=== PATIENT | male | born 1990 | race Caucasian/White ===

== ENCOUNTER 2016-10-11 12:26 | Inpatient (IN) | payer OTHER ==
[2016-10-11 13:03] VITALS: BMI 22.1
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
[2016-10-11] MEDS ORDERED: MAG HYDROX/AL HYDROX/SIMETH 30 ML UNIT-DOSE CUP PO PRN (15:13)
[2016-10-11] MEDS ORDERED: guaiFENesin/D-METHORPHAN HB 10 ML UNIT-DOSE CUPS PO PRN (15:13)
[2016-10-11] MEDS ORDERED: MENTHOL/PHENOL 1 EACH UD MM PRN (15:13)
[2016-10-11] MEDS ORDERED: P-EPHED 60MG/TRIPROLIDI 2.5MG TABLET PO PRN (15:13)
[2016-10-11] MEDS ORDERED: MAGNESIUM CITRATE 300 ML BOTTLE PO PRN (15:13)
[2016-10-11] MEDS ORDERED: chlordiazePOXIDE HCL 25 MG CAPSULE PO PRN (15:13)
[2016-10-11] MEDS ORDERED: ACETAMINOPHEN 325 MG TABLET (FP) PO PRN (15:13)
[2016-10-11] MEDS ORDERED: IBUPROFEN 400 MG TABLET (FP) PO PRN (15:13)
[2016-10-11] MEDS ORDERED: MAGNESIUM HYDROX 2400MG/30ML ORAL SUSPENSION 30 ML CUP PO PRN (15:13)
[2016-10-11] MEDS ORDERED: LOPERAMIDE HCL 2 MG CAPSULE PO PRN (15:13)
[2016-10-11] MEDS ORDERED: NICOTINE POLACRILEX 2 MG GUM BUC PRN (15:13)
[2016-10-11] MEDS ORDERED: chlordiazePOXIDE HCL 25 MG CAPSULE PO ONE (15:28)
[2016-10-11] MEDS: NICOTINE 14 MG/24 HOURS TOPICAL PATCH TD SCH (15:50)
[2016-10-11] MEDS: chlordiazePOXIDE HCL 25 MG CAPSULE PO SCH ×2 (17:06→22:31)
[2016-10-11] MEDS: THIAMINE HCL 100 MG TABLET (FP) PO SCH (22:31)
[2016-10-11] MEDS: diphenhydrAMINE HCL 50 MG CAPSULE PO PRN (22:31)
[2016-10-11 23:08] LABS: URINE APPEARANCE CLEAR; URINE BILIRUBIN NEGATIVE (NEGATIVE); URINE BLOOD NEGATIVE (NEGATIVE); URINE COLOR YELLOW; URINE GLUCOSE (UA) NEGATIVE (NEGATIVE); URINE KETONE NEGATIVE (NEGATIVE); URINE LEUK ESTERASE NEGATIVE (NEGATIVE); URINE NITRITE NEGATIVE (NEGATIVE); URINE PROTEIN NEGATIVE (NEGATIVE); URINE UROBILINOGEN NEGATIVE E.U./dl (0.2-1.0)
[2016-10-12] MEDS: chlordiazePOXIDE HCL 25 MG CAPSULE PO SCH ×4 (05:57→22:22)
[2016-10-12 09:57] LABS: MCH 27.4 pg (25.7-33.7); MCHC 32.8 g/dl (32.0-35.9); MEAN CELL VOLUME 83.6 fl (80-96); MEAN PLT VOLUME 10.5 fl (7.5-11.1); PLATELET COUNT 182 K/MM3 (134-434); RDW 15.5 % (11.9-15.9); WHITE BLOOD COUNT 7.8 K/mm3 (4.0-10.0)
[2016-10-12 10:06] LABS: ALBUMIN 4.1 g/dl (3.4-5.0); ANION GAP 4 (8-16); BILIRUBIN,TOTAL 0.7 mg/dL (0.2-1.0); CALCIUM 9.3 mg/dL (8.5-10.1); CO2 30 mmol/L (21-32); CREATININE 0.8 mg/dL (0.7-1.3); GLUCOSE,RANDOM 82 mg/dL (74-106); SGOT/AST 17 U/L (15-37); SGPT/ALT 21 U/L (12-78); TOT PROT 7.5 g/dl (6.4-8.2)
[2016-10-12 10:07] LABS: ALK PHOS 65 U/L (45-117)
[2016-10-12] MEDS: NICOTINE 14 MG/24 HOURS TOPICAL PATCH TD SCH (10:34)
[2016-10-12] MEDS: PRENATAL VITAMINS W/ FOLIC ACID TABLET (FP) PO SCH (10:34)
[2016-10-12 10:49] LABS: SICKLE CELL SCREEN NEGATIVE (NEGATIVE)
--- NOTE | 2016-10-12 11:08 | CONSULT ---
[facility] Psychiatric Consult - Data Date of interview: 10/12/16 Admission source: [facility] Identifying data: Mr Calderon is a 26 years old single male, unemployed on SSI, living in in Living room residence Substance Abuse History: Reports history of alcohol and K2 use. He started drinking alcohol and K2 at age 22, consumes one pint of vodka & one blunt of K2 daily. Last drank and used K2 on 10/10/16 Medical History: Unremarkable. Smokes 2 cigarettes daily Psychiatric History: Reports being diagnosed with Schizophrenia in 2012 and has had 2 previous psychiatric hospitalizations at [facility] and most recently 6 months ago at [facility] for paranoid delusions. He sees a psychiatrist on site at his residence and he is on prolixin Decanoate Q 2 weeks. He does know the dosage but received last injection on 10/02/16. According to [facility] info, patient is on Proloxin Dec 25 mg Q @ weeks and last received it on 10/04/16 Physical/Sexual Abuse/Trauma History: Denies history of emotional, physical or sexual abuse as well as DV relationship Additional Comment: Reports history of 2 previous misdemeanor arrests. Denies being on probation at present Mental Status Exam - Mental Status Exam Alert and Oriented to: Time, Place, Person Cognitive Function: Fair Patient Appearance: Well Groomed Mood: Hopeful, Euthymic Affect: Appropriate Patient Behavior: Cooperative Speech Pattern: Clear Voice Loudness: Normal Thought Process: Intact Hallucinations: Denies Suicidal Ideation: Denies Homicidal Ideation: Denies Insight/Judgement: Poor Sleep: Well Appetite: Good Muscle strength/Tone: Normal Gait/Station: Normal Psychiatric Findings - Problem List (Carey 1, 2,3) (1) Schizophrenia Current Visit: Yes Status: Acute (2) Alcohol dependence with uncomplicated withdrawal Current Visit: Yes Status: Acute (3) Nicotine dependence Current Visit: Yes Status: Acute - Initial Treatment Plan Initial Treatment Plan: Patient will be due to receive his Prolixin Dec on . He will be discharged from this program before that time. Continue inpatient detoxification
--- NOTE | 2016-10-12 11:10 | PN ---
[facility] CIWA - CIWA Score Nausea/Vomitin-No Nausea/No Vomiting Muscle Tremors: 4-Moderate,w/Arms Extend Anxiety: 4-Mod. Anxious/Guarded Agitation: 4-Moderately Restless Paroxysmal Sweats: 1-Minimal Palms Moist Orientation: 0-Oriented Tacttile Disturbances: 3-Moderate Itch/Numb/Burn Auditory Disturbances: 0-None Visual Disturbances: 0-None Headache: 0-None Present CIWA-Ar Total Score: 16 BHS Progress Note (SOAP) Subjective: C/O ANXIETY, TREMORS, SWEATS, FATIGUE. Objective: 10/12/16 11:12 Vital Signs Temperature 96.2 F L 10/12/16 09:54 Pulse Rate 80 10/12/16 09:54 Respiratory Rate 18 10/12/16 09:54 Blood Pressure 120/85 10/12/16 09:54 O2 Sat by Pulse Oximetry (%) Laboratory Last Values WBC 7.8 K/mm3 (4.0-10.0) 10/12/16 06:00 RBC 4.92 M/mm3 (4.00-5.60) 10/12/16 06:00 Hgb 13.5 GM/dL (11.7-16.9) 10/12/16 06:00 Hct 41.2 % (35.4-49) 10/12/16 06:00 MCV 83.6 fl (80-96) 10/12/16 06:00 MCHC 32.8 g/dl (32.0-35.9) 10/12/16 06:00 RDW 15.5 % (11.9-15.9) 10/12/16 06:00 Plt Count 182 K/MM3 (134-434) 10/12/16 06:00 MPV 10.5 fl (7.5-11.1) 10/12/16 06:00 Sickle Cell Screen Negative (NEGATIVE) 10/12/16 06:00 Sodium 139 mmol/L (136-145) 10/12/16 06:00 Potassium 4.5 mmol/L (3.5-5.1) 10/12/16 06:00 Chloride 105 mmol/L (98-107) 10/12/16 06:00 Carbon Dioxide 30 mmol/L (21-32) 10/12/16 06:00 Anion Gap 4 (8-16) L 10/12/16 06:00 BUN 9 mg/dL (7-18) 10/12/16 06:00 Creatinine 0.8 mg/dL (0.7-1.3) 10/12/16 06:00 Creat Clearance w eGFR > 60 (>60) 10/12/16 06:00 Random Glucose 82 mg/dL (74-106) 10/12/16 06:00 Calcium 9.3 mg/dL (8.5-10.1) 10/12/16 06:00 Total Bilirubin 0.7 mg/dL (0.2-1.0) 10/12/16 06:00 AST 17 U/L (15-37) 10/12/16 06:00 ALT 21 U/L (12-78) 10/12/16 06:00 Alkaline Phosphatase 65 U/L (45-117) 10/12/16 06:00 Total Protein 7.5 g/dl (6.4-8.2) 10/12/16 06:00 Albumin 4.1 g/dl (3.4-5.0) 10/12/16 06:00 Urine Color Yellow 10/11/16 21:54 Urine Appearance Clear 10/11/16 21:54 Urine pH 6.0 (5.0-8.0) 10/11/16 21:54 Urine Protein Negative (NEGATIVE) 10/11/16 21:54 Urine Glucose (UA) Negative (NEGATIVE) 10/11/16 21:54 Urine Ketones Negative (NEGATIVE) 10/11/16 21:54 Urine Blood Negative (NEGATIVE) 10/11/16 21:54 Urine Nitrite Negative (NEGATIVE) 10/11/16 21:54 Urine Bilirubin Negative (NEGATIVE) 10/11/16 21:54 Urine Urobilinogen Negative E.U./dl (0.2-1.0) 10/11/16 21:54 Ur Leukocyte Esterase Negative (NEGATIVE) 10/11/16 21:54 Assessment: 10/12/16 11:13 WITHDRAWAL SX Plan: CONTINUE DETOX
[2016-10-12 13:22] LABS: HIV 1 & 2 AB NEGATIVE; HIV 1 AGp24 NEGATIVE
[2016-10-12] MEDS: THIAMINE HCL 100 MG TABLET (FP) PO SCH (22:21)
[2016-10-12] MEDS: diphenhydrAMINE HCL 50 MG CAPSULE PO PRN (22:22)
[2016-10-13] MEDS: chlordiazePOXIDE HCL 25 MG CAPSULE PO SCH ×2 (05:59→10:25)
[2016-10-13] MEDS: NICOTINE 14 MG/24 HOURS TOPICAL PATCH TD SCH (10:25)
[2016-10-13] MEDS: PRENATAL VITAMINS W/ FOLIC ACID TABLET (FP) PO SCH (10:25)
--- NOTE | 2016-10-13 15:23 | PN ---
[facility] CIWA - CIWA Score Nausea/Vomitin-No Nausea/No Vomiting Muscle Tremors: 2 Anxiety: 4-Mod. Anxious/Guarded Agitation: 2 Paroxysmal Sweats: 3 Orientation: 2-Disoriented Date<2 days Tacttile Disturbances: 0-None Auditory Disturbances: 2-Mild Harshness/Frighten Visual Disturbances: 3-Moderate Sensitivity Headache: 0-None Present CIWA-Ar Total Score: 18 BHS Progress Note (SOAP) Subjective: Interrupted sleep, Fatigue, Sweating. Objective: PT. A & O X 2 (DISORIENTED ABOUT DAY / DATE). NO ACUTE DISTRESS. 10/13/16 15:21 Vital Signs Temperature 97.2 F L 10/13/16 09:52 Pulse Rate 89 10/13/16 09:52 Respiratory Rate 18 10/13/16 09:52 Blood Pressure 118/77 10/13/16 09:52 O2 Sat by Pulse Oximetry (%) Laboratory Tests 10/11/16 10/11/16 10/12/16 14:00 21:54 06:00 WBC 7.8 RBC 4.92 Hgb 13.5 Hct 41.2 MCV 83.6 MCHC 32.8 RDW 15.5 Plt Count 182 MPV 10.5 Sickle Cell Screen Negative Sodium Potassium Chloride Carbon Dioxide Anion Gap BUN Creatinine Creat Clearance w eGFR Random Glucose Calcium Total Bilirubin AST ALT Alkaline Phosphatase Total Protein Albumin Urine Color Yellow Urine Appearance Clear Urine pH 6.0 Ur Specific [place] 1.020 Urine Protein Negative Urine Glucose (UA) Negative Urine Ketones Negative Urine Blood Negative Urine Nitrite Negative Urine Bilirubin Negative Urine Urobilinogen Negative Ur Leukocyte Esterase Negative RPR Titer HIV 1&2 Antibody Screen Negative HIV P24 Antigen Negative 10/12/16 10/12/16 06:00 06:00 WBC RBC Hgb Hct MCV MCHC RDW Plt Count MPV Sickle Cell Screen Sodium 139 Potassium 4.5 Chloride 105 Carbon Dioxide 30 Anion Gap 4 L BUN 9 Creatinine 0.8 Creat Clearance w eGFR > 60 Random Glucose 82 Calcium 9.3 Total Bilirubin 0.7 AST 17 ALT 21 Alkaline Phosphatase 65 Total Protein 7.5 Albumin 4.1 Urine Color Urine Appearance Urine pH Ur Specific [place] Urine Protein Urine Glucose (UA) Urine Ketones Urine Blood Urine Nitrite Urine Bilirubin Urine Urobilinogen Ur Leukocyte Esterase RPR Titer Nonreactive HIV 1&2 Antibody Screen HIV P24 Antigen LABS NOTED. Assessment: 10/13/16 15:22 WITHDRAWAL SYMPTOMS. Plan: CONTINUE DETOX.
[2016-10-13] MEDS: chlordiazePOXIDE 5 MG CAPSULE PO SCH ×2 (17:27→22:05)
[2016-10-13] MEDS: THIAMINE HCL 100 MG TABLET (FP) PO SCH (22:04)
[2016-10-14] MEDS: chlordiazePOXIDE 5 MG CAPSULE PO SCH ×2 (05:56→10:16)
[2016-10-14] MEDS: PRENATAL VITAMINS W/ FOLIC ACID TABLET (FP) PO SCH (10:16)
[2016-10-14] MEDS: NICOTINE 14 MG/24 HOURS TOPICAL PATCH TD SCH (10:17)
--- NOTE | 2016-10-14 13:00 | PN ---
BHS Progress Note (SOAP) Subjective: Tremor, chills, sweating, interrupted sleep Objective: 10/14/16 12:59 Last Vital Signs Temp Pulse Resp BP Pulse Ox 96.4 F L 87 20 112/83 10/14/16 11:11 10/14/16 11:11 10/14/16 11:11 10/14/16 11:11 Laboratory Tests 10/11/16 10/11/16 10/12/16 14:00 21:54 06:00 WBC 7.8 RBC 4.92 Hgb 13.5 Hct 41.2 MCV 83.6 MCHC 32.8 RDW 15.5 Plt Count 182 MPV 10.5 Sickle Cell Screen Negative Sodium Potassium Chloride Carbon Dioxide Anion Gap BUN Creatinine Creat Clearance w eGFR Random Glucose Calcium Total Bilirubin AST ALT Alkaline Phosphatase Total Protein Albumin Urine Color Yellow Urine Appearance Clear Urine pH 6.0 Ur Specific [place] 1.020 Urine Protein Negative Urine Glucose (UA) Negative Urine Ketones Negative Urine Blood Negative Urine Nitrite Negative Urine Bilirubin Negative Urine Urobilinogen Negative Ur Leukocyte Esterase Negative RPR Titer HIV 1&2 Antibody Screen Negative HIV P24 Antigen Negative 10/12/16 10/12/16 06:00 06:00 WBC RBC Hgb Hct MCV MCHC RDW Plt Count MPV Sickle Cell Screen Sodium 139 Potassium 4.5 Chloride 105 Carbon Dioxide 30 Anion Gap 4 L BUN 9 Creatinine 0.8 Creat Clearance w eGFR > 60 Random Glucose 82 Calcium 9.3 Total Bilirubin 0.7 AST 17 ALT 21 Alkaline Phosphatase 65 Total Protein 7.5 Albumin 4.1 Urine Color Urine Appearance Urine pH Ur Specific [place] Urine Protein Urine Glucose (UA) Urine Ketones Urine Blood Urine Nitrite Urine Bilirubin Urine Urobilinogen Ur Leukocyte Esterase RPR Titer Nonreactive HIV 1&2 Antibody Screen HIV P24 Antigen Labs noted Assessment: 10/14/16 13:00 Withdrawal symptoms Plan: Continue detox
[2016-10-14] MEDS: chlordiazePOXIDE HCL 10 MG CAPSULE PO SCH ×2 (16:41→22:02)
[2016-10-14] MEDS: THIAMINE HCL 100 MG TABLET (FP) PO SCH (22:02)
--- NOTE | 2016-10-14 22:22 | EKG ---
Test Reason : Blood Pressure : / mmHG Vent. Rate : 057 BPM Atrial Rate : 057 BPM P-R Int : 120 ms QRS Dur : 096 ms QT Int : 386 ms P-R-T Axes : 039 072 066 degrees QTc Int : 375 ms SINUS BRADYCARDIA OTHERWISE NORMAL ECG NO PREVIOUS ECGS AVAILABLE Confirmed by LISA ALEGRIA MD ([id number]) on 10/14/2016 10:21:41 PM Referred By: Confirmed By:LISA ALEGRIA MD
[2016-10-15] MEDS: chlordiazePOXIDE HCL 10 MG CAPSULE PO SCH (06:14)
[2016-10-15 08:54] VITALS: BP 119/84; PULSE 78; TEMP 96.2
--- NOTE | 2016-10-15 13:11 | DS ---
[facility] Detox Discharge Summary Admission Date: 10/11/16 Discharge Date: 10/15/16 - History Present History: Alcohol Dependence Additional Comments: ADVISED PATIENT TO FOLLOW-UP FOR AFTERCARE AT [facility] PER DISCHARGE ARRANGEMENT. Pertinent Past History: Schizophrenia, Depression. - Physical Exam Results Vital Signs: Vital Signs Temperature 96.2 F L 10/15/16 08:53 Pulse Rate 78 10/15/16 08:53 Respiratory Rate 18 10/15/16 08:53 Blood Pressure 119/84 10/15/16 08:53 O2 Sat by Pulse Oximetry (%) Pertinent Admission Physical Exam Findings: WITHDRAWAL SYMPTOMS. Laboratory Tests 10/11/16 10/11/16 10/12/16 14:00 21:54 06:00 WBC 7.8 RBC 4.92 Hgb 13.5 Hct 41.2 MCV 83.6 MCHC 32.8 RDW 15.5 Plt Count 182 MPV 10.5 Sickle Cell Screen Negative Sodium Potassium Chloride Carbon Dioxide Anion Gap BUN Creatinine Creat Clearance w eGFR Random Glucose Calcium Total Bilirubin AST ALT Alkaline Phosphatase Total Protein Albumin Urine Color Yellow Urine Appearance Clear Urine pH 6.0 Ur Specific [place] 1.020 Urine Protein Negative Urine Glucose (UA) Negative Urine Ketones Negative Urine Blood Negative Urine Nitrite Negative Urine Bilirubin Negative Urine Urobilinogen Negative Ur Leukocyte Esterase Negative RPR Titer HIV 1&2 Antibody Screen Negative HIV P24 Antigen Negative 10/12/16 10/12/16 06:00 06:00 WBC RBC Hgb Hct MCV MCHC RDW Plt Count MPV Sickle Cell Screen Sodium 139 Potassium 4.5 Chloride 105 Carbon Dioxide 30 Anion Gap 4 L BUN 9 Creatinine 0.8 Creat Clearance w eGFR > 60 Random Glucose 82 Calcium 9.3 Total Bilirubin 0.7 AST 17 ALT 21 Alkaline Phosphatase 65 Total Protein 7.5 Albumin 4.1 Urine Color Urine Appearance Urine pH Ur Specific [place] Urine Protein Urine Glucose (UA) Urine Ketones Urine Blood Urine Nitrite Urine Bilirubin Urine Urobilinogen Ur Leukocyte Esterase RPR Titer Nonreactive HIV 1&2 Antibody Screen HIV P24 Antigen LABS NOTED. - Treatment Hospital Course: Detox Protocol Followed, Detoxed Safely, Responded well, Discharged Condition Good Patient has Accepted a Rehab Referral to: PATIENT GOING HOME. WILL RETURN TO [facility] - Diagnosis (1) Alcohol dependence with uncomplicated withdrawal Status: Acute (2) Nicotine dependence Status: Chronic Qualifiers: Nicotine product type: cigarettes Substance use status: uncomplicated Qualified Code(s): F17.210 - Nicotine dependence, cigarettes, uncomplicated (3) Schizophrenia Status: Acute Qualifiers: Schizophrenia type: unspecified Qualified Code(s): F20.9 - Schizophrenia, unspecified - AMA Did Patient Leave Against Medical Advice: No
== END 2016-10-15 08:59 | disposition home or self-care (01) | DRG 775 ==
LOC: YASAS 12:26 → Y3N 14:03
PROVIDERS: ADMIT Internal Medicine; ATTEND Internal Medicine
PROC: HZ2ZZZZ Detoxification Services for Substance Abuse Treatment (ICD-10-PCS; principal; 2016-10-11)
DX: F10.230 Alcohol dependence with withdrawal, uncomplicated (principal); F17.210 Nicotine dependence, cigarettes, uncomplicated; F20.9 Schizophrenia, unspecified
CPT/HCPCS: 36415; 80053; 81003; 85027; 85660; 86593; 87389; 93005; 93010